=== PATIENT | female | born 1985 | race African-American/Black ===

== ENCOUNTER 2020-03-15 22:10 | Emergency (ER) | payer OTHER ==
--- NOTE | 2020-03-15 22:14 | Emergency Room Report ---
History of Present Illness General Chief Complaint: To Be Triaged Source: Patient Present Illness HPI This a 34-year-old female with no past medical history. She patient presents with chief complaint of dysuria and frequency. Onset for last 4 days. No hematuria. Pain is 7 out of 10. Worse with urination. Better with rest. She has been drinking and taking cranberry juice without any relief. No back pain. No fever chills but no vomiting. COVID-19 Screening Contact w/high risk pt: No Recent Travel to affected area: No Experienced COVID-19 symptoms?: No Patient History Past Medical History: see triage record, old chart reviewed Past Surgical History: none Pertinent Family History: none Social History: Denies: smoking Now: No Immunizations: other Reviewed Nursing Documentation: PMH: Agreed; PSxH: Agreed Review of Systems Eye: Denies: eye pain, blurred vision ENT: Denies: ear pain, nose congestion, throat swelling Respiratory: Denies: cough, shortness of breath Cardiovascular: Denies: chest pain, palpitations Gastrointestinal: Denies: abdominal pain, diarrhea, nausea, vomiting Genitourinary: Reports: dysuria, frequency, urgency Musculoskeletal: Denies: back pain, joint pain Skin: Denies: rash Neurological: Denies: headache, numbness Endocrine: Denies: increased thirst, increased urine Hematologic/Lymphatic: Denies: easy bruising All Other Systems: negative except mentioned in HPI Physical Exam Vitals normal Sp02 EP Interpretation: reviewed, normal General Appearance: well appearing, no apparent distress, alert, obese Head: normocephalic, atraumatic Eyes: bilateral eye PERRL, bilateral eye EOMI ENT: hearing grossly normal, normal pharynx Neck: full range of motion, supple, no meningismus Respiratory: chest non-tender, lungs clear, normal breath sounds Cardiovascular #1: regular rate, rhythm, no murmur Gastrointestinal: normal bowel sounds, non tender, no mass, no organomegaly, no bruit, non-distended Musculoskeletal: back normal, normal range of motion, gait/station normal Psychiatric: mood/affect normal Medical Decision Making Diagnostic Impression: Primary Impression: UTI (urinary tract infection) Qualified Codes: N30.00 - Acute cystitis without hematuria ER Course She presents with urinary tract infection. No evidence of pyelonephritis or sepsis. Will discharge home. Dose of antibiotics given here. Status: improved Disposition: HOME, SELF-CARE Condition: Stable Scripts Cephalexin* (KEFLEX*) 500 Mg Capsule 500 MG ORAL EVERY 6 HOURS, #21 CAP Prov: Efraín Bangura MD 03/16/20 Additional Instructions: Increase fluids. Follow-up with your doctor in 2-3 days for recheck. Return if worse. Efraín Bangura MD March 15, 2020 22:14
[2020-03-16] MEDS ORDERED: CEPHALEXIN500 MG ORAL (03:20)
--- NOTE | 2020-03-16 03:27 | NUR ---
[place] DOWNTIME: For From to [id number], the following electronic documentation will be located in the patient handwritten chart, Following patient discharge, paper documentation will be scanned into [facility] with the remainder of the paper chart. Nursing Documentation Physician orders Medication Administration Records Medication Reconciliation Respiratory Documentation Dietary Documentation Case Management Documentation Senior It Assistant Documentation
== END 2020-03-15 22:55 | disposition home or self-care (01) ==
LOC: EMR 22:23
DX: N30.00 Acute cystitis without hematuria (principal)
CPT/HCPCS: 99282